=== PATIENT | male | born 1995 | race African-American/Black ===

== ENCOUNTER 2023-03-17 09:47 | Emergency (ER) | payer SELFPAY ==
[2023-03-17 10:07] VITALS: BP 160/113; PULSE 73; RESP 18; TEMP 97.9; BMI 25.1
== END 2023-03-17 10:13 | disposition left against medical advice (07) ==
LOC: JER 09:47
DX: R10.9 Unspecified abdominal pain (principal); R11.10 Vomiting, unspecified
CPT/HCPCS: 99281-25